=== PATIENT | male | born 1950 | race Caucasian/White ===

== ENCOUNTER 2017-10-08 16:00 | Inpatient (IN) | payer MEDICARE, BC ==
[~2017-10-08] VITALS: Ht 180.3 cm; Wt 91.2 kg
[2017-10-08 17:21] LABS: BASOPHILS # (AUTO) 0.03 x10^3/uL (0-0.1); BASOPHILS % (AUTO) 0 % (0-1); EOSINOPHILS # (AUTO) 0.47 x10^3/uL (0-0.4); EOSINOPHILS % (AUTO) 6 % (1-7); LYMPHOCYTES # (AUTO) 2.01 x10^3/uL (1-3.4); LYMPHOCYTES % (AUTO) 24 % (22-44); MD NO; MEAN CORPUSCULAR HEMOGLOBIN 30.7 pg (27.5-34.5); MEAN CORPUSCULAR HGB CONC 33.7 g/dL (33.2-36.2); MEAN CORPUSCULAR VOLUME 91.1 fL (81-97); MEAN PLATELET VOLUME 8.7 fL (7.4-10.4); MONOCYTES # (AUTO) 0.72 x10^3/uL (0.2-0.8); MONOCYTES % (AUTO) 9 % (2-9); NEUTROPHILS # (AUTO) 5.21 x10^3/uL (1.8-6.8); NEUTROPHILS % (AUTO) 62 % (42-75); PLATELET COUNT 255 x10^3/uL (130-400); RED BLOOD COUNT 5.05 x10^6/uL (4.38-5.82); RED CELL DISTRIBUTION WIDTH 13.4 % (9.4-14.8)
[2017-10-08 17:26] LABS: INTERNATIONAL NORMALIZED RATIO 0.98 (0.93-1.1); PROTHROMBIN TIME 10.2 Seconds (9.6-11.5)
[2017-10-08 17:31] LABS: ALBUMIN 3.4 g/dL (3.4-5.0); ANION GAP 8 mmol/L (5-15); CALCIUM 9.1 mg/dL (8.5-10.1); CHLORIDE 107 mmol/L (98-107)
[2017-10-08 17:35] LABS: ALANINE AMINOTRANSFERASE 29 U/L (12-78); ALKALINE PHOSPHATASE 71 U/L (45-117); BILIRUBIN,TOTAL 0.4 mg/dL (0.2-1.0); CREATININE 1.63 mg/dL (0.7-1.3); TOTAL PROTEIN 6.9 g/dL (6.4-8.2)
[2017-10-08] MEDS ORDERED: PANTOPRAZOLE 40 MG IV IVP ONE (18:30)
[2017-10-08] MEDS ORDERED: RANI150T8 PO (18:46)
[2017-10-08] MEDS ORDERED: PANTOPRAZOLE 80 MG in SODIUM CHLORIDE 0.9% 50 ML IVPB ONE (18:47)
[2017-10-08] MEDS ORDERED: ASPIRIN 81 MG TABLET CHEW PO ONE (19:00)
[2017-10-08] MEDS ORDERED: KETOROLAC 30 MG/1 ML IVPush ONE (19:00)
[2017-10-08] MEDS ORDERED: SODIUM CHLORIDE FLUSH 10ML SYR IVF ONE (19:00)
[2017-10-08 19:20] LABS: BASOPHILS # (AUTO) 0.02 x10^3/uL (0-0.1); BASOPHILS % (AUTO) 0 % (0-1); EOSINOPHILS # (AUTO) 0.43 x10^3/uL (0-0.4); EOSINOPHILS % (AUTO) 6 % (1-7); LYMPHOCYTES # (AUTO) 1.75 x10^3/uL (1-3.4); LYMPHOCYTES % (AUTO) 22 % (22-44); MD NO; MEAN CORPUSCULAR HEMOGLOBIN 30.8 pg (27.5-34.5); MEAN CORPUSCULAR HGB CONC 33.8 g/dL (33.2-36.2); MEAN CORPUSCULAR VOLUME 91.2 fL (81-97); MEAN PLATELET VOLUME 8.7 fL (7.4-10.4); MONOCYTES # (AUTO) 0.67 x10^3/uL (0.2-0.8); MONOCYTES % (AUTO) 9 % (2-9); NEUTROPHILS # (AUTO) 4.96 x10^3/uL (1.8-6.8); NEUTROPHILS % (AUTO) 63 % (42-75); PLATELET COUNT 244 x10^3/uL (130-400); RED BLOOD COUNT 4.88 x10^6/uL (4.38-5.82); RED CELL DISTRIBUTION WIDTH 13.5 % (9.4-14.8)
[2017-10-08 19:25] LABS: ALBUMIN 3.2 g/dL (3.4-5.0); ANION GAP 8 mmol/L (5-15); CALCIUM 9.1 mg/dL (8.5-10.1); CHLORIDE 110 mmol/L (98-107)
[2017-10-08 19:26] LABS: CREATININE 1.49 mg/dL (0.7-1.3)
[2017-10-08] MEDS ORDERED: PANTOPRAZOLE 40 MG IV IVPush SCH (19:30)
[2017-10-08] MEDS ORDERED: BISACODYL 10 MG SUPP PR PRN (19:30)
[2017-10-08] MEDS ORDERED: ONDANSETRON 2MG/ML, 2ML IVPush PRN (19:30)
[2017-10-08 19:36] VITALS: BP 146/88
[2017-10-08 19:40] VITALS: BP 146/88
[2017-10-08] MEDS: SODIUM CHLORIDE 0.9% 1,000 ML IV SCH (20:53)
[2017-10-08 21:00] VITALS: BP 146/88
[2017-10-09 01:33] VITALS: BP 134/82
[2017-10-09 04:40] LABS: BASOPHILS # (AUTO) 0.03 x10^3/uL (0-0.1); BASOPHILS % (AUTO) 0 % (0-1); EOSINOPHILS # (AUTO) 0.49 x10^3/uL (0-0.4); EOSINOPHILS % (AUTO) 6 % (1-7); LYMPHOCYTES # (AUTO) 1.86 x10^3/uL (1-3.4); LYMPHOCYTES % (AUTO) 23 % (22-44); MD NO; MEAN CORPUSCULAR HEMOGLOBIN 30.3 pg (27.5-34.5); MEAN CORPUSCULAR HGB CONC 33.2 g/dL (33.2-36.2); MEAN CORPUSCULAR VOLUME 91.4 fL (81-97); MEAN PLATELET VOLUME 8.6 fL (7.4-10.4); MONOCYTES # (AUTO) 0.62 x10^3/uL (0.2-0.8); MONOCYTES % (AUTO) 8 % (2-9); NEUTROPHILS # (AUTO) 5.21 x10^3/uL (1.8-6.8); NEUTROPHILS % (AUTO) 63 % (42-75); PLATELET COUNT 210 x10^3/uL (130-400); RED BLOOD COUNT 4.46 x10^6/uL (4.38-5.82); RED CELL DISTRIBUTION WIDTH 13.3 % (9.4-14.8)
[2017-10-09 04:53] LABS: ALANINE AMINOTRANSFERASE 24 U/L (12-78); ALBUMIN 2.9 g/dL (3.4-5.0); ANION GAP 5 mmol/L (5-15); CALCIUM 8.5 mg/dL (8.5-10.1); CHLORIDE 115 mmol/L (98-107); CREATININE 1.42 mg/dL (0.7-1.3)
[2017-10-09 04:55] LABS: ALKALINE PHOSPHATASE 54 U/L (45-117); BILIRUBIN,TOTAL 0.3 mg/dL (0.2-1.0); TOTAL PROTEIN 6.1 g/dL (6.4-8.2)
[2017-10-09] MEDS ORDERED: PANTOPRAZOLE 40 MG IV IVPush SCH (07:00)
[2017-10-09] MEDS ORDERED: MIDAZOLAM 1 MG/ML, 5ML ONE (07:57)
[2017-10-09] MEDS ORDERED: FENTANYL PF 100 MCG/2ML ONE (07:57)
[2017-10-09 07:59] VITALS: BP 109/72
[2017-10-09] MEDS: SODIUM CHLORIDE 0.9% 1,000 ML IV SCH (12:29)
[2017-10-09 13:36] VITALS: BP 102/68
[2017-10-09] MEDS ORDERED: SUCR1ORA5 PO (15:05)
[2017-10-09] MEDS ORDERED: OMEP-110 PO (15:05)
[2017-10-09] MEDS ORDERED: SUCRALFATE 1 GM/10 ML UDC PO SCH (16:00)
[2017-10-09] MEDS ORDERED: OMEPRAZOLE 20 MG CAPSULE.DR PO SCH (21:00)
== END 2017-10-09 16:36 | disposition home or self-care (01) | DRG 378 ==
LOC: ED 19:00 → EDIP 19:35 → 3NE 20:22 → DCLOUNGE 10-09 16:22
PROVIDERS: ADMIT Internal Medicine; ATTEND Internal Medicine
PROC: 0DB68ZX Excision of Stomach, Via Natural or Artificial Opening Endoscopic, Diagnostic (ICD-10-PCS; principal; 2017-10-09 08:30)
DX: K26.4 Chronic or unspecified duodenal ulcer with hemorrhage (principal); D62 Acute posthemorrhagic anemia; E46 Unspecified protein-calorie malnutrition; R13.10 Dysphagia, unspecified; K21.9 Gastro-esophageal reflux disease without esophagitis; N18.2 Chronic kidney disease, stage 2 (mild); Z80.9 Family history of malignant neoplasm, unspecified; Z82.49 Family history of ischemic heart disease and other diseases of the circulatory system; Z87.11 Personal history of peptic ulcer disease; Z87.442 Personal history of urinary calculi; Z68.28 Body mass index [BMI] 28.0-28.9, adult
CPT/HCPCS: 36415; 71045; 80048; 80053; 82040; 85025; 85610; 85730; 86677; 86850; 86900; 88305; 93005; 99152; 99153; 99285; J2250; J3010; C9113; J7030

== ENCOUNTER 2018-03-02 10:13 | Inpatient (IN) | payer MEDICARE, BC ==
[~2018-03-02] VITALS: Ht 180.3 cm; Wt 87.8 kg
[~2018-03-02 10:13] MED LIST: OMEP-110 PO; RANI150T23 PO; SUCR1ORA5 PO
[2018-03-02] MEDS ORDERED: LIDOCAINE 2%,20 ML JEL.PF.APP MM ONE ×2 (10:42→11:00)
[2018-03-02 11:12] LABS: MICROSCOPIC AUTO
[2018-03-02 11:13] LABS: CULTURE INDICATED? YES
[2018-03-02 11:29] LABS: BASOPHILS # (AUTO) 0.03 x10^3/uL (0-0.1); BASOPHILS % (AUTO) 0 % (0-1); EOSINOPHILS # (AUTO) 0.03 x10^3/uL (0-0.4); EOSINOPHILS % (AUTO) 0 % (1-7); LYMPHOCYTES % (AUTO) 5 % (22-44); MD NO; MEAN CORPUSCULAR HEMOGLOBIN 29.5 pg (27.5-34.5); MEAN CORPUSCULAR HGB CONC 33.3 g/dL (33.2-36.2); MEAN CORPUSCULAR VOLUME 88.7 fL (81-97); MEAN PLATELET VOLUME 8.4 fL (7.4-10.4); MONOCYTES % (AUTO) 4 % (2-9); NEUTROPHILS # (AUTO) 10.03 x10^3/uL (1.8-6.8); NEUTROPHILS % (AUTO) 90 % (42-75); PLATELET COUNT 218 x10^3/uL (130-400)
[2018-03-02 11:39] LABS: ANION GAP 10 mmol/L (5-15); CALCIUM 9.2 mg/dL (8.5-10.1); CHLORIDE 112 mmol/L (98-107); CREATININE 1.92 mg/dL (0.7-1.3)
[2018-03-02] MEDS ORDERED: TAMSULOSIN 0.4 MG CAP.ER.24H ONE (12:09)
[2018-03-02] MEDS ORDERED: SODIUM CHLORIDE 0.9% 1,000 ML IV ONE (12:30)
[2018-03-02] MEDS ORDERED: TAMSULOSIN 0.4 MG CAP.ER.24H PO ONE (12:30)
[2018-03-02] MEDS ORDERED: ACETAMINOPHEN 325 MG TABLET PO PRN (13:00)
[2018-03-02] MEDS ORDERED: DOCUSATE 100 MG CAPSULE PO PRN (13:00)
[2018-03-02] MEDS ORDERED: POLYETHYLENE GLYCOL 17 GM PACKET PO PRN (13:00)
[2018-03-02] MEDS ORDERED: LABETALOL 5MG/ML, 20ML IVPush PRN (13:00)
[2018-03-02] MEDS ORDERED: CEFTRIAXONE 1,000 MG in SODIUM CHLORIDE 0.9% 50 ML IV SCH (13:00)
[2018-03-02] MEDS ORDERED: BISACODYL 10 MG SUPP PR PRN (13:00)
[2018-03-02] MEDS ORDERED: ONDANSETRON 2MG/ML, 2ML IVPush PRN (13:00)
[2018-03-02] MEDS: SODIUM CHLORIDE 0.9% 1,000 ML IV SCH (14:39)
[2018-03-02 16:16] VITALS: BP 137/76
[2018-03-02 19:15] VITALS: BP 129/74
[2018-03-02] MEDS: OMEPRAZOLE 20 MG CAPSULE.DR PO SCH (21:37)
[2018-03-03] MEDS: SODIUM CHLORIDE 0.9% 1,000 ML IV SCH (00:56)
[2018-03-03 01:10] VITALS: BP 119/69
[2018-03-03 06:13] LABS: ANION GAP 6 mmol/L (5-15); BASOPHILS # (AUTO) 0.03 x10^3/uL (0-0.1); BASOPHILS % (AUTO) 0 % (0-1); CALCIUM 8.4 mg/dL (8.5-10.1); CHLORIDE 116 mmol/L (98-107); EOSINOPHILS # (AUTO) 0.39 x10^3/uL (0-0.4); EOSINOPHILS % (AUTO) 5 % (1-7); LYMPHOCYTES # (AUTO) 1.49 x10^3/uL (1-3.4); LYMPHOCYTES % (AUTO) 19 % (22-44); MD NO; MEAN CORPUSCULAR HEMOGLOBIN 30.1 pg (27.5-34.5); MEAN CORPUSCULAR HGB CONC 33.9 g/dL (33.2-36.2); MEAN CORPUSCULAR VOLUME 88.7 fL (81-97); MEAN PLATELET VOLUME 8.7 fL (7.4-10.4); MONOCYTES # (AUTO) 0.64 x10^3/uL (0.2-0.8); MONOCYTES % (AUTO) 8 % (2-9); NEUTROPHILS # (AUTO) 5.51 x10^3/uL (1.8-6.8); NEUTROPHILS % (AUTO) 68 % (42-75); PLATELET COUNT 201 x10^3/uL (130-400); RED BLOOD COUNT 4.54 x10^6/uL (4.38-5.82); RED CELL DISTRIBUTION WIDTH 14.5 % (9.4-14.8)
[2018-03-03 06:15] LABS: CREATININE 1.35 mg/dL (0.7-1.3)
[2018-03-03 06:46] VITALS: BP 123/71
[2018-03-03] MEDS: OMEPRAZOLE 20 MG CAPSULE.DR PO SCH (07:40)
[2018-03-03] MEDS ORDERED: SULF1TAB24 PO (11:54)
[2018-03-03] MEDS ORDERED: TAMS-11 PO (11:54)
[2018-03-03 12:36] VITALS: BP 130/72
== END 2018-03-03 14:16 | disposition home or self-care (01) | DRG 683 ==
LOC: ED 12:00 → EDIP 12:17 → 3NE 13:14 → DCLOUNGE 03-03 14:00
PROVIDERS: ADMIT Internal Medicine; ATTEND Internal Medicine
PROC: 0T9B70Z Drainage of Bladder with Drainage Device, Via Natural or Artificial Opening (ICD-10-PCS; principal; 2018-03-02)
DX: N17.9 Acute kidney failure, unspecified (principal); N39.0 Urinary tract infection, site not specified; E87.2 Acidosis; R33.9 Retention of urine, unspecified; D72.829 Elevated white blood cell count, unspecified; K21.9 Gastro-esophageal reflux disease without esophagitis; R73.9 Hyperglycemia, unspecified; N20.0 Calculus of kidney; R91.1 Solitary pulmonary nodule; N26.1 Atrophy of kidney (terminal); Z82.49 Family history of ischemic heart disease and other diseases of the circulatory system; Z87.11 Personal history of peptic ulcer disease; Z87.442 Personal history of urinary calculi; Z80.9 Family history of malignant neoplasm, unspecified
CPT/HCPCS: 36415; 74176; 76770; 80048; 81001; 85025; 87086; 96360; J0696; J7030

== ENCOUNTER 2018-09-29 08:42 | Outpatient (CLI) | payer MEDICARE, BC ==
[~2018-09-29 08:42] MED LIST changes: +SULF1TAB24 PO; +TAMS-11 PO
[2018-09-29] MEDS ORDERED: OMNIPAQUE 350 MG/ML, 75ML BOTTLE ONE (15:00)
== END 2018-09-29 23:59 | disposition home or self-care (01) ==
LOC: CFH 08:42
PROVIDERS: ATTEND Nurse Practitioner Family
DX: R91.1 Solitary pulmonary nodule (principal)
CPT/HCPCS: 71260; 82565; Q9967

== ENCOUNTER 2019-07-17 10:18 | Observation (INO) | payer MEDICARE, BC ==
[~2019-07-17] VITALS: Ht 182.9 cm; Wt 91.5 kg
[~2019-07-17 10:18] MED LIST changes: +ASPI-515 PO; +ATOR40TA78 PO; +BETA15OI6 TP; +METO25TA35 PO; +RANI-467 PO; -RANI150T23 PO
[2019-07-17 10:53] VITALS: BP 129/71
[2019-07-17] MEDS ORDERED: SODIUM CHLORIDE 0.9% 1,000 ML IV SCH (11:00)
[2019-07-17] MEDS ORDERED: FENTANYL PF 100 MCG/2ML ONE (11:03)
[2019-07-17] MEDS ORDERED: VERAPAMIL 2.5 MG/ML, 2ML ONE (11:03)
[2019-07-17] MEDS ORDERED: MIDAZOLAM 1 MG/ML, 5ML ONE (11:03)
[2019-07-17] MEDS ORDERED: BIVALIRUDIN 250 MG ONE (11:03)
[2019-07-17] MEDS ORDERED: TICAGRELOR 90 MG TABLET ONE (11:03)
[2019-07-17] MEDS ORDERED: PRASUGREL 10 MG TABLET ONE (11:04)
[2019-07-17] MEDS ORDERED: HEPARIN 1,000 UNITS/ML, 10ML ONE (11:04)
[2019-07-17] MEDS ORDERED: LIDOCAINE-MPF 1%, 5ML ONE (11:04)
[2019-07-17] MEDS ORDERED: NITROGLYCERIN 5 MG/ML, 10ML ONE (11:05)
[2019-07-17] MEDS ORDERED: BIVALIRUDIN 250 MG in SODIUM CHLORIDE 0.9% 50 ML IV SCH (12:34)
[2019-07-17] MEDS: SODIUM CHLORIDE 0.9% 1,000 ML IV SCH ×2 (12:34→20:34)
[2019-07-17 13:00] VITALS: BP 108/69
[2019-07-17 17:46] LABS: MICROSCOPIC INDICATED
[2019-07-17 17:51] LABS: CULTURE INDICATED? NO
[2019-07-17] MEDS ORDERED: METOPROLOL TARTRATE 25 MG TABLET PO SCH ×3 (18:00→18:09)
[2019-07-17 19:36] VITALS: BP 120/69
[2019-07-17] MEDS ORDERED: ATORVASTATIN 40 MG TABLET PO SCH ×2 (21:00)
[2019-07-17] MEDS: BETAMETHASONE DIPRO OINT 0.05%, 15GM TP SCH (21:00)
[2019-07-18 03:41] VITALS: BP 129/68
[2019-07-18 04:37] LABS: ANION GAP 5 mmol/L (5-15); CALCIUM 8.5 mg/dL (8.5-10.1); CHLORIDE 113 mmol/L (98-107); CREATININE 1.49 mg/dL (0.7-1.3)
[2019-07-18 06:03] VITALS: BP 124/72
[2019-07-18 07:43] VITALS: BP 124/74
[2019-07-18] MEDS ORDERED: PRAS10TA4 PO (08:19)
[2019-07-18] MEDS: BETAMETHASONE DIPRO OINT 0.05%, 15GM TP SCH (08:58)
[2019-07-18] MEDS ORDERED: ASPIRIN 81 MG TABLET EC PO SCH (09:00)
[2019-07-18] MEDS ORDERED: OMEPRAZOLE 20 MG CAPSULE.DR PO SCH (09:00)
[2019-07-18] MEDS ORDERED: PRASUGREL 10 MG TABLET PO SCH (09:00)
[2019-07-18] MEDS ORDERED: TAMSULOSIN 0.4 MG CAP.ER.24H PO SCH (09:00)
== END 2019-07-18 10:48 | disposition home or self-care (01) ==
LOC: CACL 10:18 → 5SO 12:33 → CACL 22:53 → 5SO 22:54 → DCLOUNGE 07-18 10:35
PROVIDERS: ADMIT Internal Medicine Cardiovascular Disease; ATTEND Internal Medicine Cardiovascular Disease
DX: I20.0 Unstable angina (principal); K21.9 Gastro-esophageal reflux disease without esophagitis; Z87.11 Personal history of peptic ulcer disease; Z79.899 Other long term (current) drug therapy
CPT/HCPCS: 36415; 80048; 81001; 85014; 85018; 93005; 93458; 99156; 99157; C1725; C1769; C1874; C1887; C1894; C9600; G0378; J0583; J1644; J2250; J3010; J7030; Q9967

== ENCOUNTER 2019-07-25 18:59 | Emergency (ER) | payer MEDICARE, BC ==
[~2019-07-25] VITALS: Ht 182.9 cm; Wt 91.3 kg
[~2019-07-25 18:59] MED LIST changes: +PRAS10TA4 PO
[2019-07-25 19:43] LABS: BASOPHILS # (AUTO) 0.01 x10^3/uL (0-0.1); BASOPHILS % (AUTO) 0 % (0-1); EOSINOPHILS # (AUTO) 0.27 x10^3/uL (0-0.4); EOSINOPHILS % (AUTO) 4 % (1-7); LYMPHOCYTES # (AUTO) 1.28 x10^3/uL (1-3.4); LYMPHOCYTES % (AUTO) 20 % (22-44); MD NO; MEAN CORPUSCULAR HEMOGLOBIN 30.4 pg (27.5-34.5); MEAN CORPUSCULAR VOLUME 92.2 fL (81-97); MEAN PLATELET VOLUME 9.1 fL (7.4-10.4); MONOCYTES % (AUTO) 9 % (2-9); NEUTROPHILS # (AUTO) 4.41 x10^3/uL (1.8-6.8); NEUTROPHILS % (AUTO) 67 % (42-75); PLATELET COUNT 222 x10^3/uL (130-400); RED BLOOD COUNT 5.48 x10^6/uL (4.38-5.82)
--- NOTE | 2019-07-25 19:52 | NUR ---
Assist RN: urine sent to lab.
[2019-07-25 19:56] LABS: ALANINE AMINOTRANSFERASE 33 U/L (12-78); ALBUMIN 3.8 g/dL (3.4-5.0); ANION GAP 7 mmol/L (5-15); CALCIUM 9.5 mg/dL (8.5-10.1); CHLORIDE 110 mmol/L (98-107); CREATININE 1.95 mg/dL (0.7-1.3)
[2019-07-25 19:58] LABS: ALKALINE PHOSPHATASE 94 U/L (45-117); BILIRUBIN,TOTAL 0.5 mg/dL (0.2-1.0); TOTAL PROTEIN 8.1 g/dL (6.4-8.2)
[2019-07-25 20:11] LABS: CULTURE INDICATED? YES; MICROSCOPIC INDICATED
[2019-07-25 21:51] VITALS: BP 127/78
--- NOTE | 2019-07-25 21:51 | NUR ---
Assist RN: re-evaluation done. patient discharged with instruction. verbalized understanding.
== END 2019-07-25 21:53 | disposition home or self-care (01) ==
LOC: ED 19:30
DX: R31.29 Other microscopic hematuria (principal); N28.9 Disorder of kidney and ureter, unspecified; I10 Essential (primary) hypertension
CPT/HCPCS: 36415; 76770; 80053; 81001; 85025; 87086; 87147; 99284

== ENCOUNTER 2020-12-20 09:15 | Inpatient (IN) | payer MEDICARE, BC ==
[~2020-12-20] VITALS: Ht 182.9 cm; Wt 80.9 kg
[~2020-12-20 09:15] MED LIST changes: -ASPI-515 PO; +ASPI-963 PO; +SULF-23 PO; -SULF1TAB24 PO
[2020-12-20 10:35] LABS: BASOPHILS % (AUTO) 1 % (0-1); EOSINOPHILS % (AUTO) 1 % (1-7); LYMPHOCYTES % (AUTO) 13 % (22-44); MEAN CORPUSCULAR HEMOGLOBIN 31.2 pg (27.5-34.5); MEAN CORPUSCULAR HGB CONC 33.5 g/dL (33.2-36.2); MEAN PLATELET VOLUME 8.8 fL (7.4-10.4); MONOCYTES % (AUTO) 7 % (2-9); NEUTROPHILS % (AUTO) 79 % (42-75); PLATELET COUNT 203 x10^3/uL (130-400); RED BLOOD COUNT 4.12 x10^6/uL (4.38-5.82)
[2020-12-20 10:36] LABS: MD NO
[2020-12-20 10:48] LABS: ALBUMIN 3.2 g/dL (3.4-5.0); ANION GAP 5 mmol/L (5-15); CALCIUM 8.5 mg/dL (8.5-10.1); CHLORIDE 114 mmol/L (98-107); INTERNATIONAL NORMALIZED RATIO 1.11 (0.93-1.1); PROTHROMBIN TIME 11.9 Seconds (9.6-11.5)
[2020-12-20 10:52] LABS: ALANINE AMINOTRANSFERASE 27 U/L (12-78); ALKALINE PHOSPHATASE 67 U/L (45-117); BILIRUBIN,TOTAL 0.5 mg/dL (0.2-1.0); CREATININE 1.54 mg/dL (0.7-1.3); TOTAL PROTEIN 6.5 g/dL (6.4-8.2)
[2020-12-20] MEDS ORDERED: PANTOPRAZOLE 80 MG in SODIUM CHLORIDE 0.9% 50 ML IVPB ONE (11:00)
[2020-12-20] MEDS ORDERED: PANTOPRAZOLE 80 MG in SODIUM CHLORIDE 0.9% 100 ML IV SCH (11:00)
[2020-12-20] MEDS ORDERED: SODIUM CHLORIDE 0.9% 1,000 ML IV ONE ×2 (11:00→13:30)
[2020-12-20] MEDS ORDERED: SODIUM CHLORIDE FLUSH 10ML SYR IVF ONE (11:00)
--- NOTE | 2020-12-20 11:02 | NUR ---
CT WAITING FOR PROTONIC IV SOLUTION TO FINISH- RN WILL CALL WHEN READY
--- NOTE | 2020-12-20 11:15 | NUR ---
OFF THE FLOOR TO CT
[2020-12-20] MEDS ORDERED: OMNIPAQUE 350 MG/ML, 100ML BOTTLE ONE (11:32)
--- NOTE | 2020-12-20 13:27 | NUR ---
TASK RN: DR. ELMORE TO BEDSIDE FOR EVALUATION. [email or web address].
[2020-12-20] MEDS ORDERED: hydrALAzine 20 MG/ML, 1ML IVPush PRN (13:30)
[2020-12-20] MEDS ORDERED: SODIUM CHLORIDE FLUSH 10ML SYR IVF PRN (13:30)
[2020-12-20] MEDS ORDERED: ACETAMINOPHEN 325 MG TABLET PO PRN (13:30)
[2020-12-20] MEDS ORDERED: ONDANSETRON 2MG/ML, 2ML IVPush PRN (13:30)
[2020-12-20] MEDS ORDERED: MELATONIN 5 MG TABLET PO PRN (13:30)
--- NOTE | 2020-12-20 14:18 | NUR ---
REPORT TO STARR GARCIA
[2020-12-20] MEDS ORDERED: DESO60OI6 TP (15:44)
[2020-12-20 15:50] VITALS: BP 100/63
[2020-12-20] MEDS: PANTOPRAZOLE 80 MG in SODIUM CHLORIDE 0.9% 100 ML IV SCH (17:15)
[2020-12-20] MEDS: LACTATED RINGERS 1,000 ML IV SCH (17:15)
[2020-12-20 19:20] VITALS: BP 95/52
[2020-12-20] MEDS ORDERED: ATORVASTATIN 40 MG TABLET PO SCH (21:00)
[2020-12-20 21:07] LABS: MICROSCOPIC INDICATED
[2020-12-21 00:38] VITALS: BP 96/57
[2020-12-21] MEDS: LACTATED RINGERS 1,000 ML IV SCH ×2 (00:47→08:25)
[2020-12-21] MEDS: PANTOPRAZOLE 80 MG in SODIUM CHLORIDE 0.9% 100 ML IV SCH (00:47)
[2020-12-21 05:42] LABS: BASOPHILS % (AUTO) 1 % (0-1); EOSINOPHILS % (AUTO) 7 % (1-7); LYMPHOCYTES % (AUTO) 20 % (22-44); MEAN CORPUSCULAR HEMOGLOBIN 31.7 pg (27.5-34.5); MEAN CORPUSCULAR HGB CONC 34.2 g/dL (33.2-36.2); MEAN PLATELET VOLUME 8.8 fL (7.4-10.4); MONOCYTES % (AUTO) 9 % (2-9); NEUTROPHILS % (AUTO) 63 % (42-75); PLATELET COUNT 162 x10^3/uL (130-400); RED BLOOD COUNT 3.37 x10^6/uL (4.38-5.82); RED CELL DISTRIBUTION WIDTH 14.2 % (9.4-14.8)
[2020-12-21 06:02] LABS: ANION GAP 6 mmol/L (5-15); CALCIUM 8.1 mg/dL (8.5-10.1); CHLORIDE 115 mmol/L (98-107); CREATININE 1.35 mg/dL (0.7-1.3)
[2020-12-21 06:05] LABS: MD NO
[2020-12-21 07:58] VITALS: BP 101/60
[2020-12-21] MEDS ORDERED: TAMSULOSIN 0.4 MG CAP.ER.24H PO SCH (09:00)
[2020-12-21] MEDS ORDERED: CHLORHEXIDINE 15 ML UDC ONE (11:59)
[2020-12-21 12:05] VITALS: BP 101/56
[2020-12-21] MEDS ORDERED: PROPOFOL 10 MG/ML, 20ML ONE (12:46)
[2020-12-21] MEDS ORDERED: HYDROmorphone 1 MG/ML, 1ML INJ IVPush PRN (13:00)
[2020-12-21] MEDS ORDERED: MIDAZOLAM 1 MG/ML, 2ML IV PRN (13:00)
[2020-12-21] MEDS ORDERED: DIAZEPAM 5 MG/ML, 2ML IVPush PRN (13:00)
[2020-12-21] MEDS ORDERED: MEPERIDINE/PF 25MG/0.5ML IVPush PRN (13:00)
[2020-12-21] MEDS ORDERED: EPHEDRINE 50 MG/ML, 1ML IVPush PRN (13:00)
[2020-12-21] MEDS ORDERED: hydrALAzine 20 MG/ML, 1ML IV PRN (13:00)
[2020-12-21] MEDS ORDERED: ALBUTEROL SULFATE 2.5 MG/3 ML NPPB PRN (13:00)
[2020-12-21] MEDS ORDERED: DIPHENHYDRAMINE 50 MG/ML, 1ML IVPush PRN ×2 (13:00)
[2020-12-21] MEDS ORDERED: PROMETHAZINE 25 MG/ML, 1ML IVPush PRN (13:00)
[2020-12-21] MEDS ORDERED: FENTANYL PF 100 MCG/2ML IV PRN (13:00)
[2020-12-21] MEDS ORDERED: ONDANSETRON 2MG/ML, 2ML IVPush PRN (13:00)
[2020-12-21] MEDS ORDERED: OXYcodone 5 MG/5 ML ORAL.SOL UDC PO PRN (13:00)
[2020-12-21] MEDS ORDERED: PROMETHAZINE 12.5 MG SUPP PR PRN (13:00)
[2020-12-21] MEDS ORDERED: LABETALOL 5MG/ML, 20ML IV PRN (13:00)
[2020-12-21] MEDS ORDERED: OMEP-110 PO (14:01)
[2020-12-22] MEDS ORDERED: OMEPRAZOLE 20 MG CAPSULE.DR PO SCH (06:00)
== END 2020-12-21 18:01 | disposition home or self-care (01) | DRG 378 ==
LOC: ED 10:42 → 3N 13:13 → ED 15:18
PROVIDERS: ADMIT Hospitalist; ATTEND Hospitalist
PROC: 0DB68ZX Excision of Stomach, Via Natural or Artificial Opening Endoscopic, Diagnostic (ICD-10-PCS; principal; 2020-12-21 12:30)
DX: K26.4 Chronic or unspecified duodenal ulcer with hemorrhage (principal); E87.2 Acidosis; I13.0 Hypertensive heart and chronic kidney disease with heart failure and stage 1 through stage 4 chronic kidney disease, or unspecified chronic kidney disease; I50.32 Chronic diastolic (congestive) heart failure; N13.2 Hydronephrosis with renal and ureteral calculous obstruction; K29.01 Acute gastritis with bleeding; D18.03 Hemangioma of intra-abdominal structures; I25.10 Atherosclerotic heart disease of native coronary artery without angina pectoris; K44.9 Diaphragmatic hernia without obstruction or gangrene; K76.9 Liver disease, unspecified; N18.30 Chronic kidney disease, stage 3 unspecified; Z82.49 Family history of ischemic heart disease and other diseases of the circulatory system; Z87.442 Personal history of urinary calculi; Z95.5 Presence of coronary angioplasty implant and graft; Z79.82 Long term (current) use of aspirin; Z79.899 Other long term (current) drug therapy
CPT/HCPCS: 36415; 71045; 74177; 80048; 80053; 81001; 85014; 85018; 85025; 85610; 85730; 86850; 86900; 87086; 87635; 88305; 93005; 99285; G0378; J2704; Q9967; C9113; J7030; J7120